=== PATIENT | male | born 1970 | race Caucasian/White ===

== ENCOUNTER 2017-12-28 05:23 | Emergency (ER) | payer OTHER ==
[~2017-12-28] VITALS: Ht 175.3 cm; Wt 112.3 kg
[2017-12-28] MEDS: ONDANSETRON ODT 4 MG TAB.RAPDIS PO ONE (05:37)
[2017-12-28] MEDS: ACETAMINOPHEN 500 MG TABLET PO ONE (05:38)
[2017-12-28] MEDS: guaiFENesin/CODEINE 100mg/10mg 5 ML LIQUID PO ONE (05:39)
[2017-12-28] MEDS ORDERED: KETOROLAC 60 MG/2 ML VIAL. IM ONE (05:42)
--- NOTE | 2017-12-28 05:43 | PHYS DOC ---
General Chief Complaint: FLU SYMPTOM Stated Complaint: HEADACHE BACKPAIN Time Seen by MD: 05:25 Source: patient Exam Limitations: no limitations Problems: History of Present Illness Initial Comments 47-year-old male to the emergency department via EMS diverted from the [place] complaining of fever and body pain. Patient states that approximately 8 PM last night he developed chills and sweats , clear nasal drainage, global throbbing headache without focal weakness, generalized myalgias and dry cough. No vomiting or diarrhea last bowel movement was Wednesday night described as normal and last by mouth intake was 3 AM he had some sips of water. On arrival to the ED he is writhing complaining of severe pain, heart rate is 79 bpm 118/76 101.4F. No pre-arrival treatment immunocompromise. Timing/Duration: other Severity: severe Modifying Factors: improves with other Associated Symptoms: cough, fever/chills, headaches, other Allergies: Coded Allergies: Penicillins (Verified Allergy, Unknown, 12/28/17) aspirin (Verified Allergy, Unknown, 12/28/17) Past Medical History Medical History: other (asthma, sinusitis, hearing problems) Surgical History: other (cochlear implant, septoplasty, back, ventral hernia) Review of Systems Constitutional: see HPI EENTM: denies blurred vision, denies ear pain (she), nose congestion, denies throat pain Respiratory: cough, denies shortness of breath, denies wheezing Cardiovascular: denies chest pain (118), denies palpitations, denies syncope Gastrointestinal: denies abdominal pain, denies nausea, denies vomiting Musculoskeletal: see HPI Psychiatric/Neurological: headache, denies numbness, denies paresthesia, denies weakness (Jeanie that she symptomatic with blood pressure her blood pressure is well-controlled with lots of the her troponins normal specific 18 with a 107) Physical Exam General Appearance: WD/WN, moderate distress Ear, Nose, Throat: hearing grossly normal, normal ENT inspection (Physical) Neck: non-tender, supple Respiratory: normal breath sounds, no respiratory distress Cardiovascular: normal peripheral pulses, regular rate, rhythm Extremities: non-tender, normal inspection Neurologic/Psychiatric: peer counselor II-XII nml as tested, no motor/sensory deficits, alert, oriented x 3 Skin: normal color, warm/dry Orders, Labs, Meds Patient has the appearance and symptomatology consistent with influenza. Tylenol 1 g, guaifenesin with codeine and Zofran ODT given by mouth. Toradol 60 mg IM, and influenza studies are pending. Allergy clarification: no NSAID allergy pt takes Ibuprofen. 0604: Influenza A positive. Discussed with patient, he's feeling better with meds. Agreeable with discharge plan. Departure Time of Disposition: 06:05 Disposition: 01 HOME, SELF-CARE Diagnosis: Influenza A Condition: IMPROVED Patient Instructions: Influenza, Adult, [id number] Additional Instructions: Rest, activity as tolerated. Aggressive hydration to prevent dehydration. OTC tylenol and ibuprofen as needed. Rx: Tamiflu, guaifenesin with codeine syrup Follow up with your doctor in 5-7 days if not better. Return to ED with new or changing symptoms. MATTY GATICA DO Dec 28, 2017 05:43
[2017-12-28] MEDS: KETOROLAC 60 MG/2 ML VIAL. IM ONE (05:48)
[2017-12-28 06:00] LABS: INFLUENZA A PATIENT POSITIVE (NEGATIVE); INFLUENZA B PATIENT NEGATIVE (NEGATIVE)
[2017-12-28] MEDS ORDERED: OSEL75CA PO (06:02)
[2017-12-28] MEDS ORDERED: GUAI118L13 PO (06:07)
[2017-12-28] MEDS: OSELTAMIVIR 75 MG CAPSULE PO ONE (06:14)
[2017-12-28 07:45] VITALS: BP 114/70
== END 2017-12-28 07:00 | disposition home or self-care (01) ==
LOC: ER 05:23
DX: J09.X2 Influenza due to identified novel influenza A virus with other respiratory manifestations (principal); J45.909 Unspecified asthma, uncomplicated; Z88.0 Allergy status to penicillin; Z88.6 Allergy status to analgesic agent
CPT/HCPCS: 87804; 96372; 99284; J1885; Q0162